=== PATIENT | female | born 1955 | race Caucasian/White ===

== ENCOUNTER 2021-01-25 14:10 | Inpatient (IN) | payer OTHER ==
[~2021-01-25] VITALS: Ht 162.6 cm; Wt 93.4 kg
[~2021-01-25 14:10] MED LIST: ASPIRIN EC81 M1 PO; BACTRIM DS TAB1 EACH PO; BENAZEPRIL; BENAZEPRIL HCL40 MG PO; GEMFIBROZIL 60600 MG PO; GLUCOPHAGE1000 MG PO; GLUCOTROL10 MG PO; GLUCOTROL5 MG; GLUMETZA1000; LOW DOSE ASPIRI81 M1 PO; NORVASC10 MG; NORVASC10 MG PO; ONGLYZA5 MG PO; PHENERGAN 25 MG25 M1 PO; VICODIN 5-5001 EACH PO; VITAMIN D1000 UNI1 PO; ZYRTEC 10 MG TA10 MG PO; ZYRTEC10 M2 PO
[2021-01-25 14:25] VITALS: BP 100/82
[2021-01-25] MEDS ORDERED: TRULICITY1.5 MG/0.5 SUBQ (14:38)
[2021-01-25 14:42] LABS: HEMATOCRIT 38.2 % (37.0-47.0); HEMOGLOBIN 12.9 gm/dL (12.0-15.0); MCH 28.1 pg (26.0-34.0); MCHC 33.8 g/dL (28.0-37.0); MPV 7.6 fl. (7.2-11.1); NUCLEATED RBCS 0 /100WBC; PLATELET COUNT* 269 thou/uL (150-400); RDW-CV 14.6 % (10.5-14.5); WBC 4.9 thou/uL (4.0-11.0)
[2021-01-25 14:52] LABS: CALCIUM 8.8 mg/dL (8.5-10.1); CREATININE 1.1 mg/dL (0.6-1.3); POTASSIUM 4.1 mmol/L (3.5-5.1)
[2021-01-25 14:56] LABS: APTT 31.8 Seconds (25.0-31.3); INR 1.1; PROTIME 11.3 Seconds (9.20-11.50)
[2021-01-25 15:02] LABS: ALBUMIN 2.6 g/dL (3.4-5.0); TOTAL BILIRUBIN 0.5 mg/dL (<0.1-1.0); TOTAL PROTEIN 7.1 g/dL (6.4-8.2)
[2021-01-25 15:04] LABS: BE -6.3 mmol/L (-2 to +3); PO2 61.9 mmHg (75.0-100.0); pH 7.401 (7.340-7.450)
[2021-01-25 15:10] LABS: ABSOLUTE LYMPHOCYTES 0.5 thou/uL (0.8-5.3); ABSOLUTE MONOCYTES 0.1 thou/uL (0.0-1.2); ABSOLUTE NEUTROPHILS 4.3 thou/uL (1.6-8.1)
[2021-01-25 15:11] LABS: PLATELET ESTIMATE ADEQUATE
[2021-01-25 18:23] VITALS: BP 127/65
[2021-01-25] MEDS ORDERED: METFORMIN HCL500 M3 PO (18:30)
[2021-01-25] MEDS ORDERED: LIPITOR10 MG PO (18:32)
[2021-01-25] MEDS ORDERED: SYNTHROID75 MC1 PO (18:33)
[2021-01-25 18:39] VITALS: BP 96/50
[2021-01-25 20:00] VITALS: BP 109/58
[2021-01-26] VITALS (9 sets, daily range): BP systolic 101–125; BP diastolic 49–75
[2021-01-26 02:06] LABS: HEPATITIS B SURFACE AG Negative (Negative)
[2021-01-26 05:04] LABS: PREALBUMIN 11.7 mg/dL (18.0-35.7)
[2021-01-26 05:05] LABS: HEMATOCRIT 35.6 % (37.0-47.0); HEMOGLOBIN 11.9 gm/dL (12.0-15.0); MCHC 33.5 g/dL (28.0-37.0); MCV 83.8 fL (80.0-100.0); MPV 7.8 fl. (7.2-11.1); RBC 4.25 mil/uL (4.20-5.00); RDW-CV 14.7 % (10.5-14.5); WBC 2.5 thou/uL (4.0-11.0)
[2021-01-26 05:10] LABS: ALBUMIN 2.2 g/dL (3.4-5.0); ALKALINE PHOSPHATASE 93 U/L (46-116); ANION GAP 12 mmol/L (7-16); BUN 18 mg/dL (7-18); CALCIUM 9.3 mg/dL (8.5-10.1); CHLORIDE 101 mmol/L (98-107); CO2 22 mmol/L (21-32); GLUCOSE 331 mg/dL (70-99); NT-PRO BRAIN NAT PEPTIDE 200 pg/mL (<300); POTASSIUM 4.6 mmol/L (3.5-5.1); SGOT 40 U/L (15-37); SGPT 37 U/L (30-65); SODIUM 135 mmol/L (136-145); TOTAL BILIRUBIN 0.3 mg/dL (<0.1-1.0); TOTAL PROTEIN 6.3 g/dL (6.4-8.2); TROPONIN-I LEVEL <0.06 ng/mL (<0.06)
--- NOTE | 2021-01-26 09:03 | EKG ---
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 : 1955 Requested By: Kit Murray Order Number: [id number] MD: Zach Pepe Measurements Intervals [place] Rate: 88 P: 27 AK: 159 QRS: 7 QRSD: 97 T: -11 QT: 338 QTc: 409 Interpretive Statements Sinus rhythm Low voltage, precordial leads Borderline T abnormalities, inferior leads Compared to ECG 10/23/2011 07:22:53 Low QRS voltage now present T-wave abnormality now present Electronically Signed On 01-26-2021 9:03:32 [employer] by Zach Pepe [email or web address] <ELECTRONICALLY SIGNED> By: Zach Pepe MD, FACC 01/26/21902 144 144 Zach Pepe MD, FAC /EPI
[2021-01-26] MEDS ORDERED: LEVO-T25 MCG PO (10:47)
[2021-01-26] MEDS ORDERED: FENOFIBRIC ACI135 MG PO (10:49)
[2021-01-26] MEDS ORDERED: VISTARIL 25 MG25 M1 PO (10:50)
[2021-01-26] MEDS ORDERED: TRAMADOL 50 MG50 MG PO (10:51)
[2021-01-27] VITALS: BP 124/71
[2021-01-27 04:00] VITALS: BP 128/78
[2021-01-27 04:36] LABS: HEMATOCRIT 33.5 % (37.0-47.0); HEMOGLOBIN 11.3 gm/dL (12.0-15.0); MCH 27.8 pg (26.0-34.0); MCHC 33.6 g/dL (28.0-37.0); MCV 82.9 fL (80.0-100.0); MPV 7.6 fl. (7.2-11.1); RBC 4.04 mil/uL (4.20-5.00); RDW-CV 14.4 % (10.5-14.5); WBC 3.3 thou/uL (4.0-11.0)
[2021-01-27 05:03] LABS: ALBUMIN 2.3 g/dL (3.4-5.0); CALCIUM 9.9 mg/dL (8.5-10.1); CREATININE 0.9 mg/dL (0.6-1.3); POTASSIUM 3.7 mmol/L (3.5-5.1); TOTAL BILIRUBIN 0.3 mg/dL (<0.1-1.0); TOTAL PROTEIN 6.1 g/dL (6.4-8.2)
[2021-01-27 08:00] VITALS: BP 118/59
[2021-01-27 11:54] VITALS: BP 111/63
--- NOTE | 2021-01-27 13:28 | CON ---
[address] [address] CONSULTATION Name: NELLIE LEVINE Room: [address] IN M.R.#: [id number] Admission: 01/25/21 Attend Phys: Annemarie Mackenzie MD Discharge: Date of : 53 Report #: [id number] THIS REPORT FOR: cc: Flip Banks Gregg R. DO ~ Reza Lobato MD DATE OF SERVICE: 01/26/2021 Consult has been requested by Dr. Mackenzie. INDICATION FOR CONSULTATION: Acute hypoxemic respiratory failure secondary to COVID-19. HISTORY OF PRESENT ILLNESS: A 65-year-old female. She is a lifetime nonsmoker. I have suspicion that she may have obstructive sleep apnea, but has not previously been diagnosed. She does not have a history of cardiac or respiratory disease in the past. She does; however, have a history of hypertension as well as diabetes and does have some seasonal allergies. The patient received her first dose of COVID-19 vaccine on 01/16; however, began having shortness of breath, cough as well as a fever up to 102 on 01/28. She has also had decrease in appetite, has had diarrhea. She has also been having nausea; however, no vomiting with these worsening complaints. She came to the Emergency Room yesterday. The patient does report night sweats, chills, change in appetite as well as weakness. She says that she has been having nasal congestion, headaches, as well as dizziness. She does not have much sputum production. She answered to the negative for 12 questions for review of systems except as mentioned above. Since yesterday, there has been an increase in oxygen needs. Yesterday, she was maintaining O2 saturation on 2 liters nasal cannula. We are now up to 6 liters. There is some improvement of her O2 saturations since morning, though currently she is 95%. There may be some room to bring down oxygen. PAST MEDICAL HISTORY: Diabetes, hypertension, seasonal allergies. Partial hysterectomy, tubal ligation, left colon removed for diabetes mellitus. Two pregnancies with live births. SOCIAL HISTORY: She is a lifetime nonsmoker. No known history of heavy alcohol use or illegal drug use. CURRENT MEDICATIONS: List in [employer] reviewed. HOME MEDICATIONS: [place] [place] [address] CONSULTATION Name: JULIANNANELLIE Eloy Room: [address]#: [id number] Admission: 01/25/21 Attend Phys: Annemarie Mackenzie MD Discharge: Date of : 53 Report #: [id number] FAMILY HISTORY: No pertinent family history. PHYSICAL EXAMINATION: GENERAL: She is alert, awake and oriented, does not appear to be in any distress at this time. VITAL SIGNS: She has a pulse of 98 and a blood pressure of 113/64. She is saturating 95%. She is on 6 liters nasal cannula, blood pressure on the lower side, but still within the normal range at 113/64. She is afebrile with a temperature of 36.8. Body mass index is 34. HEENT: Head is normocephalic and atraumatic. Mucous membranes appear to be moist. She appears to have a narrow airway. NECK: Does not show raised JVP, asymmetry, mass or lymph nodes. CHEST: Symmetrical expansion on inspection and palpation. On auscultation, breath sounds are bilaterally equal, but decreased. Expirations are prolonged. I suspect that there is a component of bronchospasm. HEART: Regular. There is no murmur. ABDOMEN: Soft and nontender. EXTREMITIES: Lower extremities show minimal edema only. There is no calf tenderness. SKIN: Dry and intact. NEUROLOGICAL: Moves all extremities bilaterally equally and spontaneously with no focal deficit identified. LABORATORY DATA: The patient's CTA chest from yesterday is reviewed. In summary, there are bilateral infiltrates consistent with COVID-19. There are no pulmonary emboli. Venous Dopplers are negative. Chest x-ray from yesterday also reviewed. No additional findings. I ordered a chest x-ray today which is pending. Lab from this morning in [facility] reviewed. There is a drop in WBC count 2.5. BUN and creatinine are normal. Glucose is around the higher side. Arterial blood gas consistent with acute hypoxemic respiratory failure in [facility] reviewed. ASSESSMENT AND PLAN: 1. Acute hypoxemic respiratory failure secondary to COVID-19. We will continue to titrate oxygen. We recommend ambulation to a recliner. Also, recommend prone positioning and lying on sides in preference to lying supine. In case there is further increase in oxygen needs, then I will have a low threshold of adding BiPAP while asleep as I have a strong suspicion that the patient has significant underlying obstructive sleep apnea. 2. COVID-19. I would continue with Decadron as currently prescribed. I am also giving her a dose of Solu-Medrol for bronchospasm as discussed below. We will continue with remdesivir as currently prescribed as well. We will watch LFTs closely while she is on remdesivir. Considering that there is an increase [address] [place] [address] CONSULTATION Name: NELLIE LEVINE Room: [address]#: [id number] Admission: 01/25/21 Attend Phys: Annemarie Mackenzie MD Discharge: Date of : 53 Report #: [id number] in oxygen needs since yesterday, I discussed with the patient regarding use of convalescent plasma and explained risks and benefits and she agreed if we recommend, I will go ahead and order 1 unit. In case the patient's oxygen needs increased further, then I will recommend having a low threshold of giving her Actemra as in that case, it does improve survival. If her oxygen needs do increase, I would also in that case, consider increasing the dose of Decadron in addition to considering a second unit of convalescent plasma tomorrow. 3. Bronchospasm. I feel that her auscultation is consistent with a component of bronchospasm. Note that she does have a history of allergic rhinitis. She is on nebulized bronchodilators. She is also receiving Decadron. I will go ahead and give her 1 dose of Solu-Medrol for this reason as well. Reassess tomorrow. 4. Mild fluid overload. Blood pressure is on the lower side, but she would tolerate Lasix with the plasma. I ordered one dose. 5. Diabetes, we will need to watch her blood glucoses closely. 6. Pulmonary infiltrates, primarily secondary to COVID-19; however, secondary bacterial infection certainly will be possible. I agree with continuing with broad-spectrum antibiotics as currently prescribed. 7. Cough. I discontinued scheduled hydrocodone as this will have a respiratory depressant effects. She remains on Mucinex DM, which does have a cough suppressant effect. We will follow. 8. Deep vein thrombosis prophylaxis. She is on Lovenox. 9. Gastrointestinal prophylaxis. She is on Protonix. 10. Clostridium difficile prophylaxis. We will add Lactinex. Thanks for this consultation. <ELECTRONICALLY SIGNED> By: Reza Lobato MD 01/27/21 1328 1220 [id number] Lobato MD /nt
[2021-01-27 16:07] VITALS: BP 129/78
[2021-01-27 20:00] VITALS: BP 152/94
[2021-01-27] MEDS ORDERED: LANTUS SUBQ (20:44)
[2021-01-28 00:46] VITALS: BP 144/84
[2021-01-28 04:04] VITALS: BP 124/77
[2021-01-28 06:10] LABS: ABSOLUTE LYMPHOCYTES 0.6 thou/uL (0.8-5.3); ABSOLUTE MONOCYTES 0.3 thou/uL (0.0-1.2); ABSOLUTE NEUTROPHILS 2.9 thou/uL (1.6-8.1); BASOPHILS 0.3 %; EOSINOPHILS 0.1 %; HEMATOCRIT 31.9 % (37.0-47.0); HEMOGLOBIN 10.9 gm/dL (12.0-15.0); LYMPHOCYTES 15.8 %; MCHC 34.3 g/dL (28.0-37.0); MCV 81.7 fL (80.0-100.0); MONOCYTES 7.1 %; MPV 7.2 fl. (7.2-11.1); NUCLEATED RBCS 0 /100WBC; PLATELET COUNT* 277 thou/uL (150-400); POLYS 76.7 %; RBC 3.91 mil/uL (4.20-5.00); RDW-CV 14.6 % (10.5-14.5); WBC 3.7 thou/uL (4.0-11.0)
[2021-01-28 06:22] LABS: ALBUMIN 2.3 g/dL (3.4-5.0); CALCIUM 8.9 mg/dL (8.5-10.1); CREATININE 0.9 mg/dL (0.6-1.3); MAGNESIUM 1.7 mg/dL (1.8-2.4); TOTAL BILIRUBIN 0.2 mg/dL (<0.1-1.0); TOTAL PROTEIN 5.7 g/dL (6.4-8.2)
[2021-01-28 08:00] VITALS: BP 126/77
[2021-01-28 12:00] VITALS: BP 119/86
[2021-01-28 15:42] VITALS: BP 134/71
[2021-01-28 20:00] VITALS: BP 148/94
[2021-01-28 20:00] LABS: MAGNESIUM 1.8 mg/dL (1.8-2.4); POTASSIUM 4.6 mmol/L (3.5-5.1)
[2021-01-29] VITALS: BP 134/64
[2021-01-29 04:42] VITALS: BP 144/59
[2021-01-29 08:00] VITALS: BP 144/88
[2021-01-29 12:30] VITALS: BP 167/88
[2021-01-29 16:00] VITALS: BP 132/84
[2021-01-29 20:00] VITALS: BP 166/89
[2021-01-30] VITALS (7 sets, daily range): BP systolic 134–164; BP diastolic 77–96
[2021-01-30] MEDS ORDERED: BENZONATATE100 MG PO (12:50)
[2021-01-30] MEDS ORDERED: IPRAT-ALBUT 0.5-3 ML INH (12:50)
[2021-01-30] MEDS ORDERED: LANTUS SUBQ (12:50)
[2021-01-30] MEDS ORDERED: MEDROLDOSEPACK PO (12:50)
[2021-01-30] MEDS ORDERED: GLUCOTROL5 MG PO (12:50)
[2021-01-30] MEDS ORDERED: GLUCOPHAGE1000 MG PO (12:50)
[2021-01-30] MEDS ORDERED: HUMALOG100 UNIT/1 SUBQ (12:50)
[2021-01-30] MEDS ORDERED: LEVOFLOXACIN500 MG PO (12:50)
[2021-01-30] MEDS ORDERED: MUCUS RLF DM E1 EACH PO (12:50)
== END 2021-01-30 15:50 | disposition home health service (06) | DRG 177 ==
LOC: M.ERS 14:10 → M.2W 15:35 → M.TBA-ER 15:35 → M.2W 18:09
PROVIDERS: Family Medicine; Internal Medicine Critical Care Medicine; ADMIT Internal Medicine; ATTEND Internal Medicine
PROC: XW033E5 Introduction of Remdesivir Anti-infective into Peripheral Vein, Percutaneous Approach, New Technology Group 5 (ICD-10-PCS; principal; 2021-01-25)
PROC: 5A0935A Assistance with Respiratory Ventilation, Less than 24 Consecutive Hours, High Flow/Velocity Cannula (ICD-10-PCS; 2021-01-26)
PROC: XW13325 Transfusion of Convalescent Plasma (Nonautologous) into Peripheral Vein, Percutaneous Approach, New Technology Group 5 (ICD-10-PCS; 2021-01-26)
PROC: 5A0935A Assistance with Respiratory Ventilation, Less than 24 Consecutive Hours, High Flow/Velocity Cannula (ICD-10-PCS; 2021-01-27)
DX: U07.1 COVID-19 (principal); J96.01 Acute respiratory failure with hypoxia; J15.6 Pneumonia due to other Gram-negative bacteria; J12.82 Pneumonia due to coronavirus disease 2019; R65.11 Systemic inflammatory response syndrome (SIRS) of non-infectious origin with acute organ dysfunction; E11.9 Type 2 diabetes mellitus without complications; E87.70 Fluid overload, unspecified; I95.9 Hypotension, unspecified; I10 Essential (primary) hypertension; Z90.711 Acquired absence of uterus with remaining cervical stump; Z90.49 Acquired absence of other specified parts of digestive tract; Z79.84 Long term (current) use of oral hypoglycemic drugs; Z79.899 Other long term (current) drug therapy; Z91.09 Other allergy status, other than to drugs and biological substances